=== PATIENT | female | born 1995 | race Two or more races ===

== ENCOUNTER 2019-03-24 20:13 | Emergency (ER) | payer MEDICAID ==
[~2019-03-24] VITALS: Ht 160 cm; Wt 74.8 kg
--- NOTE | 2019-03-24 20:38 | NUR ---
ED Nurse Note: pt presents to ED with a HALL for the past "few weeks." pt rates the pain a 9/10 that is worse at night. pt denies taking any meds for the pain and has never experienced this before. per pt, she is late on her period, her last menstural cycle ended on 02/18. she does not know if she is or not but states that she is not on any form of contraception. the pain is localized to her forehead and does not radaite anywhere.
[2019-03-24 20:40] VITALS: BP 116/79
[2019-03-24 20:59] LABS: APPEARANCE,URINE CLEAR; BILIRUBIN, URINE NEGATIVE (NEGATIVE); GLUCOSE, URINE (UA) NEGATIVE (NEGATIVE); KETONES,URINE NEGATIVE (NEGATIVE); LEUKOCYTE ESTERASE ,URINE NEGATIVE (NEGATIVE); NITRITE,URINE NEGATIVE (NEGATIVE); PH,URINE 6 (4.5-8.0); PROTEIN,URINE NEGATIVE (NEGATIVE); UROBILINOGEN,URINE 1 MG/DL (0.0-1.0)
[2019-03-24 21:00] LABS: COLOR,URINE YELLOW
[2019-03-24] MEDS ORDERED: IBUPROFEN600 MG ORAL (21:08)
--- NOTE | 2019-03-24 21:09 | Emergency Room Report ---
History of Present Illness General Chief Complaint: Headache Source: Patient Present Illness HPI This is a 23-year-old female with no past medical history. She presents with chief complaint. First complaint is to have a headache. This has been ongoing for about a week. Throbbing in nature. Diffuse in nature gradual in nature. No focal deficit. No cough congestion. No fever chills. Pain is 7 out of 10. Did not take anything for it. The second complaint is that she missed her menstruation. It should have been 3 days ago. Her periods are regular. Denies any bleeding. Denies any pain. No nausea no vomiting. Did not take any pressing test. Allergies: Coded Allergies: No Known Allergies (Unverified , 03/24/19) Patient History Past Medical History: see triage record, old chart reviewed Past Surgical History: none Pertinent Family History: none Social History: Denies: smoking Last Menstrual Period: 02/18/19 Now: No Immunizations: other Reviewed Nursing Documentation: PMH: Agreed; PSxH: Agreed Nursing Documentation-PMH Hx Asthma: Yes Review of Systems Eye: Denies: eye pain, blurred vision ENT: Denies: ear pain, nose congestion, throat swelling Respiratory: Denies: cough, shortness of breath Cardiovascular: Denies: chest pain, palpitations Gastrointestinal: Denies: abdominal pain, diarrhea, nausea, vomiting Musculoskeletal: Denies: back pain, joint pain Skin: Denies: rash Neurological: Reports: headache; Denies: numbness Endocrine: Denies: increased thirst, increased urine Hematologic/Lymphatic: Denies: easy bruising All Other Systems: negative except mentioned in HPI Physical Exam Vital Signs Date Time Temp Pulse Resp B/P (MAP) Pulse Ox O2 Delivery O2 Flow Rate FiO2 03/24/19 20:24 98.2 98 16 116/79 (91) 97 Room Air Vitals normal Sp02 EP Interpretation: reviewed, normal General Appearance: well appearing, no apparent distress, alert Head: normocephalic, atraumatic Eyes: bilateral eye PERRL, bilateral eye EOMI ENT: hearing grossly normal, normal pharynx Neck: full range of motion, supple, no meningismus Respiratory: chest non-tender, lungs clear, normal breath sounds Cardiovascular #1: regular rate, rhythm, no murmur Gastrointestinal: normal bowel sounds, non tender, no mass, no organomegaly, no bruit, non-distended Musculoskeletal: back normal, gait/station normal, normal range of motion Psychiatric: mood/affect normal Medical Decision Making Diagnostic Impression: Primary Impression: Headache Qualified Codes: G44.209 - Tension-type headache, unspecified, not intractable ER Course Patient presents with headache. She looks well. Talking the phone without any problem. No evidence of any meningitis, sepsis,/CVA or bleed. Will discharge home. Last Vital Signs Date Time Temp Pulse Resp B/P (MAP) Pulse Ox O2 Delivery O2 Flow Rate FiO2 03/24/19 20:40 98.2 16 116/79 97 Room Air 03/24/19 20:24 98 Status: improved Disposition: HOME, SELF-CARE Condition: Stable Scripts Ibuprofen* (MOTRIN*) 600 Mg Tablet 600 MG ORAL THREE TIMES A DAY, #30 TAB 0 Refills Prov: Luis Armando Martinez MD 03/24/19 Patient Instructions: General Headache Without Cause Additional Instructions: Your test is negative here. This may be very early in the , i.e. less than a week. If you are still not getting your recent in a week, you can check a test. Follow-up with your doctor in week. Return if worse. Luis Armando Martinez MD Mar 24, 2019 21:09
[2019-03-24] MEDS ORDERED: Ketorolac 60mg Inj IM ONE (21:15)
[2019-03-24 21:19] VITALS: BP 119/85
--- NOTE | 2019-03-24 21:19 | NUR ---
ED Nurse Note: Pt cleared by health care Provider for discharge. DC instructions and prescription were given and explained to pt and verbalized understanding of teachings. All medical devices such as ID band removed. Pt is AAO x4, ambulatory and left with all personal belongings.
== END 2019-03-24 21:19 | disposition home or self-care (01) ==
LOC: EMR 21:19
DX: G44.209 Tension-type headache, unspecified, not intractable (principal)
CPT/HCPCS: 81003; 81025; 96372; Z7502; 99283

== ENCOUNTER 2019-07-26 17:16 | Emergency (ER) | payer MEDICAID ==
[~2019-07-26] VITALS: Ht 160 cm; Wt 81.2 kg
[~2019-07-26 17:16] MED LIST: IBUPROFEN600 MG ORAL
--- NOTE | 2019-07-26 17:48 | NUR ---
ED Nurse Note:urine sent to labs
[2019-07-26 17:59] VITALS: BP 116/79
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
[2019-07-26] MEDS ORDERED: VENTOLIN HFA18 GM INH (18:29)
[2019-07-26] MEDS ORDERED: PROMETHAZINE-D118 ML ORAL (18:29)
[2019-07-26] MEDS ORDERED: GUAIFENESI100 MG/5 M ORAL (18:29)
[2019-07-26 18:30] VITALS: BP 116/79
--- NOTE | 2019-07-26 18:30 | NUR ---
ER DISCHARGE NOTE: Patient is cleared to be discharged per ERMD, pt is aox4, on room air, with stable vital signs. pt was given dc and prescription instructions, pt was able to verbalize understanding, pt is able to ambulate with steady gait. pt took all belongings.
== END 2019-07-26 18:30 | disposition home or self-care (01) ==
LOC: EMR 18:20
DX: J06.9 Acute upper respiratory infection, unspecified (principal); J45.909 Unspecified asthma, uncomplicated
CPT/HCPCS: 81025; Z7502; 99282